=== PATIENT | female | born 1935 | race Caucasian/White ===

== ENCOUNTER 2016-10-15 19:04 | Inpatient (IN) | payer MEDICARE, BC ==
[~2016-10-15] VITALS: Ht 154.9 cm; Wt 82.6 kg
--- NOTE | ~2016-10-15 | ECH ---
Transthoracic Echocardiography Report (TTE) Demographics Patient Name HALEIGH COUCH Date of Study 10/16/2016 Patient Number [id number] Visit Number [id number] Date of 1935 Room Number 309 Accession Number [id number] Gender Female Age 81 year(s) Referring Alberto Men[address] Oiler Ginny Johnson [facility] Physician MD Dominick Nguyen MD Physician Interpreting Dominick Nguyen [employer] Team Member Physician Supervising Ordering Physician Dominick Nguyen MD/MLP Nurse Stress Chronic Specialist Conclusions Contractility Score Summary Normal Left Ventricular contractility was noted. Summary Technically adequate exam. The estimated left ventricular ejection fraction is 60-65%. There is mild to moderate aortic regurgitation by color Doppler. Trivial tricuspid regurgitation by color Doppler. Normal pulmonary pressures. Mild-moderate pulmonic valve regurgitation by color Doppler. Moderate circumferential pericardial effusion, posterior greater than anterior. Unchanged from study of 05/05/2016. There is no echocardiographic evidence of cardiac tamponade. Procedure Type of Study TTE procedure:Echo Complete SF. Procedure Date Date: 10/16/2016 Start: 10:23 AM Technical Quality: Adequate visualization Indications:Pericardial effusion. Appropriate Use Criteria: 9 Height: 61 inches Weight: 181 pounds BSA: 1.81 m Rhythm: Within normal limits HR: 78 bpm BP: 124/58 mmHg M-Mode/2D Measurements LV Diastolic Dimension: 4.3 cm LV Systolic Dimension: 2.71 cm LV Septum Diastolic: 0.87 cm LV PW Diastolic: 0.87 cm AO Root Dimension: 2.45 cm Cardiac Output: 6.77 l/min LA Dimension: 3.35 cm Cardiac Index: 3.74 l/min*m RV Diastolic Dimension: 3.35 cm LA volume index: 25 ml/m Post Pericard Effusion: 1.7 cm LVOT: 1.91 cm LVOT VTI: 30.32 cm RV Base: 2.8 cm LV Stroke volume: 86.83 ml RV Mid: 1.9 cm LV Stroke volume index: 47.97 ml/m TAPSE: 2.2 cm TDI-S': 14 cm/s Doppler Measurements AV Peak Velocity: 2.1 m/s MV Peak E-Wave: 1.06 m/s AV Peak Gradient: 17.64 mmHg MV Peak A-Wave: 1.68 m/s AV Mean Gradient: 10.7 mmHg MV E/A Ratio: 0.63 LVOT Peak Velocity: 1.57 m/s MV P1/2t: 96.1 msec AV Area (Continuity):2.04 cm AV P1/2t: 295 msec TR Velocity:2.32 m/s MV Deceleration Time: 339.8 msec TR Gradient:21.53 mmHg MV Area (PHT): 2.29 cm Estimated RAP:5 mmHg PV Peak Velocity: 1.32 m/s Estimated RVSP: 27 mmHg PV Peak Gradient: 6.97 mmHg E' Septal Velocity: 0.06 m/s Estimated PASP: 26.53 mmHg E' Lateral Velocity: 0.07 m/s A' Septal Velocity: 0.1 m/s A' Lateral Velocity: 0.13 m/s RA Area: 11.41 cm Findings Left Ventricle Normal left ventricle size and function. Diastolic assessment reveals Grade I diastolic dysfunction. Right Ventricle Normal right ventricle structure and function. Left Atrium Normal left atrial size. Right Atrium Normal right atrial size. Mitral Valve Mild mitral annular calcification. Trivial mitral regurgitation by color Doppler. Aortic Valve The aortic valve is moderately sclerotic. There is mild aortic regurgitation by color Doppler. Tricuspid Valve Normal tricuspid valve structure and function. Trivial tricuspid regurgitation by color Doppler. Normal pulmonary pressures. Pulmonic Valve Normal pulmonic valve structure and function. Mild-moderate pulmonic valve regurgitation by color Doppler. Pericardial Effusion Moderate circumferential pericardial effusion, posterior greater than anterior. Unchanged from study of 05/05/2016. There is no echocardiographic evidence of cardiac tamponade. Miscellaneous Visualized portions of the aortic root and ascending aorta appear normal in size. Pleural Effusion No evidence of pleural effusion. Contractility Score LV regional wall motion:(0-Non visualized 1-Normal 2-Hypokinesis 3-Akinesis 4-Dyskinesis 5-Aneurysm) Signature
[~2016-10-15 19:04] MED LIST: ASCORBIC ACID500 MG PO; BROVANA15 MCG/2 M IH; CALCIUM PO; CALCIUM500 MG PO; CALTRATE-600 W600 MG PO; DAILY MULTIPLE1 EAC1 PO; DALIRESP500 MCG PO; DELTASONE DPS10 MG PO; DELTASONE DPS5 MG PO; DESYREL-DPS50 MG PO; DUONEB DPS3 ML IH; LASIX DPS40 MG PO; LASIX40 MG PO; MICRO-K DPS10 MEQ PO; MIRALAX PACKET17 GM PO; MIRALAX17 GM PO; MONTELUKAST SOD10 MG PO; MUCINEX1200 MG PO; MUCINEX600 MG PO; MUCOMYST 10% DPS4 ML IH; NORVASC5 MG PO; PAXIL DPS20 MG PO; POTASSIUM PO; PREDNISONE; PRESERVISION A1 EAC1 PO; PRILOSEC DPS20 MG PO; PROVENTIL HFA6.7 GM IH; PULMICORT0.5 MG/2 M IH; REGLAN DPS5 MG PO; REGLAN5 MG PO; SENOKOT DPS8.6 MG PO; SINGULAIR10 MG PO; STIOLTO RESPIMAT4 GM IH; STOOL SOFTENER1 EACH PO; STOOL SOFTENER100 M1 PO; SYMBICORT160 MCG/6 IH; SYSTANE BALANCE10 ML OU; VANTIN DPS200 MG PO; VEGETABLE LAXA8.6 MG PO; VENTOLIN HFA8 GM IH; VIBRAMYCIN-DPS100 M2 PO; VITAMIN C500 M1 PO; VITAMIN D PO; VITAMIN D2000 UNI1 PO; VITAMIN D2000 UNIT PO; XANAX0.25 MG PO; ZANTAC DPS150 MG PO; ZITHROMAX250 MG PO; [UNRECOGNIZED DRUG - OTHER] PO
--- NOTE | 2016-10-20 11:06 | HP ---
ADMIT: 10/15/2016 RM/LOC: 309 [facility] MR#: [id number] [address] [address] HALEIGH COUCH [address] [place] [address] History and Physical SEX: F AGE: 81 : 1935 DATE OF SERVICE: CHIEF COMPLAINT AND HISTORY OF PRESENT ILLNESS: This 81-year-old female who was admitted with increasing dyspnea, wheezing, and cough. The patient has a long standing history of severe asthma with occasional exacerbations. She also has a history of carcinoma of the lung. She was seen in the office 2 days ago, was given a shot of cortisone, started on azithromycin. The patient has gotten worse. Since then, her sats have gotten worse. She does have a pericardial effusion, was seen by Dr. Tan and because of her severe hypoxemia, was placed in the Intensive Care Unit. The patient has long-standing COPD. She has had no hemoptysis. She really has not had a fever with this, but has had a productive cough. Again, there is no hemoptysis or chest pain, but considerable dyspnea and wheezing. PREVIOUS MEDICAL HISTORY: Generally, her health has been poor. She has had carcinoma of the lung, polymyalgia rheumatica, asthma, chronic constipation, depression, severe COPD. PAST SURGICAL HISTORY: Include an appendectomy, cholecystectomy, hysterectomy, left upper lobectomy, hemorrhoidectomy, breast biopsies, and a sinus surgery. ALLERGIES: THE PATIENT STATES SHE IS ALLERGIC TO PENICILLIN WHICH CAUSES ITCHING. SHE ALSO CANNOT TAKE BIAXIN WHICH CAUSES MORE SEVERE REACTIONS INCLUDING NAUSEA, VOMITING, ITCHING AND SHE HAS NOT TOLERATED. HOWEVER, SHE HAS TOLERATED Z-MAXX IN THE PAST. SHE IS NOT SURE IF SHE HAS TAKEN ROCEPHIN. SHE ALSO DOES NOT TOLERATE HYDROCODONE, NSAIDS, AND SALICYLATES. MEDICATIONS INCLUDE: 1. Lasix 40 mg daily. 2. Reglan 5 mg b.i.d. 3. MiraLax 17 g daily. 4. Singulair. 5. Vitamin D3 daily. 6. Calcium 400 mg daily. 7. Docusate daily. 8. Vitamin C daily. 9. Potassium chloride 10 mEq daily. 10.Omeprazole 40 mg daily. 11.Multivitamins. 12.Paxil 20 mg daily. 13.PreserVision b.i.d. 14.DuoNeb inhaler. 15.Ventolin inhaler. 16.Stiolto inhaler. She recently was placed on Zithromax and prednisone. FAMILY HISTORYHer brother had a myocardial infarction in his 50s, but he is ADMIT: 10/15/2016 RM/LOC: 309 [facility] MR#: [id number] [id number] [address] [place] [address] History and Physical SEX: F AGE: 81 : 1935 living and well now. Her mother of CVA, and her father had leukemia. SOCIAL HISTORYThe patient has remote history of smoking. She lives with her . She is retired. She does not drink alcohol. REVIEW OF SYSTEMSHEENT: The patient wears glasses. No hearing loss. She has had some sinus problems. CARDIORESPIRATORY: The patient has asthma. No myocardial infarctions. There was no chest pain. GI: The patient has a history of GERD. She has had a cholecystectomy. : No hematuria, dysuria. METABOLIC/ENDOCRINE: No history of diabetes or thyroid disorders. MUSCULOSKELETAL: The patient has kyphosis. She has osteoarthritis. PHYSICAL EXAMINATIONVITAL SIGNS: Blood pressure is 127/66, pulse 86 and regular, respirations 22. GENERAL: The patient is a well-nourished, well-developed female, who is wheezing, but she states her breathing has got better. HEENT: Head - normocephalic without exostoses. WIN. Throat within normal limits. NECK: Neck veins not distended. Thyroid not enlarged. CHEST: Diminished breath sounds bilaterally with wheezing and rales bilaterally. HEART: Regular rhythm with no murmur heard. No clinical evidence of cardiomegaly. ADMIT: 10/15/2016 RM/LOC: 309 [facility] MR#: [id number] [id number] [address] [facility] [address] [place] [address] History and Physical SEX: F AGE: 81 : 1935 ABDOMEN: Soft, nontender. Liver is not enlarged. Spleen is not palpable. No abnormal masses are palpated. Femoral pulses are strong and equal bilaterally. GENITALIA: Deferred. EXTREMITIES: No cyanosis, clubbing or edema. ASSESSMENT#. Acute exacerbation of chronic obstructive pulmonary disease. 1. History of carcinoma lung. 2. Gastroesophageal reflux disease. 3. Hypoxia. 4. Chronic steroid therapy. 5. Polymyalgia rheumatica. Donavan Dominguez MD/ compa JOB #: [id number] CC: Donavan Dominguez, Attending Physician Donavan Dominguez, Family Physician
--- NOTE | 2016-10-20 15:02 | CO ---
ADMIT: 10/15/2016 RM/LOC: 309 [facility] MR#: [id number] [address] [address] MARYJANE COUCH [address] [place] [address] Consultation SEX: F AGE: 81 : 1935 DATE OF CONSULTATION: 10/16/2016 ATTENDING PHYSICIAN: Donavan Dominguez CONSULTING PHYSICIAN: Memo Tan MD REASON FOR CONSULT: Pericardial effusion on CAT scan. HISTORY OF PRESENT ILLNESS: Maryjane is an 81-year-old lady with chronic lung disease and history of lung cancer, status post left upper lobectomy, three years ago in 2013. She says she did not require radiation or chemotherapy. She quit smoking about 20 years ago. She has been struggling with an ongoing COPD exacerbation and chronic cough since this past fall when she was hospitalized. She also says she has asthma. Over the past 7 to 10 days, she said this cough has worsened to the point where it is very coarse. She coughs to the point where she passes out on several occasions. She went to see Dr. Dominguez on Monday. She was given steroids and started on some antibiotics. Despite that, she continued to have this terrible cough and had three episodes yesterday which prompted her to come to the emergency room. Through all of this, she says she has not had any chest pain. She does not have any other prior cardiac history. No heart failure and denies any new lower extremity edema. She was admitted with a COPD exacerbation. Last night in the hospital, she became acutely short of breath and hypoxic. She was transferred to the ICU. By the time she got down to the ICU, her sats were backup in the 90s. She is still on 2 to 3 L of oxygen, but feels much better. She did not have quite as much cough last night. As part of that evaluation and CAT scan was done. I do not have the full report, but apparently, they said there was a moderate pericardial effusion. She is not hypotensive. Her EKG is slightly low voltage, but otherwise, she does not have significant JVD and she has not had any syncope without coughing. PAST MEDICAL HISTORY: ALLERGIES: SHE IS ALLERGIC TO SALICYLATES, NSAIDS, PENICILLIN, QUINOLONES, STATINS, DIGOXIN, HYDROCODONE, ASPIRIN, CLARITHROMYCIN, ZOFRAN, AND BROVANA. MEDICATIONS: Her home medications include: 1. Furosemide 40 daily. 2. Reglan 5 b.i.d. 3. MiraLax 17 g daily. 4. Singulair 10 at bedtime. 5. Vitamin D3 daily. 6. Calcium 400 daily. 7. Docusate daily. 8. Vitamin C. 9. Potassium chloride 10 mEq daily. ADMIT: 10/15/2016 RM/LOC: 309 [facility] MR#: [id number] [id number] [place] [address] [place] [address] Consultation SEX: F AGE: 81 : 1935 10.Omeprazole 40 daily. 11.Multivitamin daily. 12.Paxil 20 daily. 13.PreserVision b.i.d. 14.DuoNeb inhaler. 15.Budesonide inhaler. 16.Ventolin inhaler. 17.Stiolto inhaler. 18.Zithromax 250 q.i.d. 19.Prednisone 5 daily. ILLNESSES: Include her COPD and a history of asthma, polymyalgia rheumatic, chronic constipation, and depression. SURGERIES: Include appendectomy, cholecystectomy, hysterectomy, left upper lobectomy, hemorrhoid surgeries, several sinus surgeries, and breast biopsies which have been benign. FAMILY HISTORY: Her brother had a myocardial infarction in his 50s, but he lived into his 90s. Her mother of a cerebrovascular accident. Her father had leukemia. SOCIAL HISTORY: She lives here in [place] with her of 61 years. They have 2 children. 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 Her worked for the [employer] for almost 50 years. She quit smoking 20 years ago. She does not drink alcohol. REVIEW OF SYSTEMS: A full 12-point review of systems was reviewed and noncontributory other than that mentioned above. PHYSICAL EXAMINATION: VITAL SIGNS: Her blood pressure is 127/66, her pulse is 86, respirations 22. She is currently afebrile. O2 sats are 95% on 2 L. GENERAL: She is alert and oriented. She has good humor. She does not appear in any acute distress. She does have mild pursed lipped breathing. SKIN: Mildly pale. Warm, dry, well perfused. Good capillary refill. EYES: Sclerae clear. No xanthelasmas. ENT: No significant JVD and I cannot hear any carotid bruits over her transmitted upper airway sounds. No significant thyromegaly. CHEST: There is moderate kyphosis with diffuse end expiratory wheezes throughout and poor air movement throughout, but no specific areas of crackles. HEART: The heart is not overly distant. There is a soft systolic murmur heard in the mid precordium, but mostly at the base, but I do not think it radiates to the carotids. I do not hear an apical murmur and there are no lifts. ABDOMEN: Obese with a small ventral deformity. Otherwise, no organomegaly or hepatomegaly. Soft and nontender. MUSCULOSKELETAL: Gait is normal. EXTREMITIES: Peripheral pulses palpable. No clubbing, cyanosis or edema. ADMIT: 10/15/2016 RM/LOC: 309 [facility] MR#: [id number] [address] [address] MARYJANE COUCH [address] [place] [address] Consultation SEX: F AGE: 81 : 1935 PSYCHIATRIC: Alert and oriented. Mood and affect are appropriate. LABORATORY DATA: Sodium was 141, potassium is 3.5, creatinine is 0.9, glucose is 141. Total bilirubin and protein were normal. CK was 98. Her troponin was 0.148. White count 9.5, hemoglobin 10.9, and platelet count 212,000. Her chest x-ray does not show marked cardiomegaly. Apparently, a CAT scan suggested a moderate pericardial effusion. IMPRESSION: 1. Possible moderate pericardial effusion. 2. Chronic obstructive pulmonary disease exacerbation. 3. History of asthma. 4. Hypoxia. 5. History of lung cancer, status post left upper lobectomy. 6. Probable cough syncope. 7. Chronic steroid therapy for polymyalgia rheumatic. RECOMMENDATIONS: She is not hypotensive nor tachycardic. I do not think there is any tamponade physiology. She does have low voltage on her EKG, but I am not sure if this is new. I do not see any other clinical manifestations of a large pericardial effusion or tamponade physiology. We will do an echo today for further evaluation. I did look back, and in 2011, she had trivial amount of pericardial fluid, so we will compare it today. My feeling is that her of pericardial effusion is probably incidental and not contributing to her cough and her current COPD exacerbation which she has been really struggling with since this past fall. Further evaluation of her pericardial effusion will be based on the echo findings and the amount of fluid. Memo Tan MD/ compa JOB #: [id number] CC: Donavan Dominguez, Attending Physician Donavan Dominguez, Family Physician
--- NOTE | 2016-10-24 10:51 | DS ---
ADMIT: 10/16/2016 RM/LOC: 510 [facility] MR#: [id number] [id number] [facility] [address] [place], [place] [address] HALEIGH COUCH [address] [place] [address] Discharge Summary SEX: F AGE: 81 : 1935 ADMISSION DATE: 10/16/2016 DISCHARGE DATE: 10/23/2016 HISTORY AND PHYSICAL: Please see the chart. LABORATORY AND X-RAY DATA: Please see the chart. CLINICAL COURSE: This 81-year-old female was admitted with increasing weakness, cough, wheezing and borderline respiratory failure. Initially, she was seen in the emergency room. She was given intravenous Solu-Medrol 125 mg initially daily and was increased to 125 mg t.i.d. Pulmonary was consulted as was the economics department chair. The patient was felt to have a possible pericardial effusion and primarily problem was exacerbation of her COPD with hypoxia and also status post carcinoma of the lung with lobectomy. Over the next few days, the patient slowly improved. She was given intravenous Zithromax which she has tolerated in the past and then was later given Rocephin. She was given Lovenox for DVT prevention. The patient again slowly improved. At the time of discharge, her oxygen levels were better. She still required 1 L of oxygen during the day and her evening home oxygen. He was placed out of the intensive care unit and on to telemetry on 10/17. No significant dysrhythmias were noted. Pulmonary function again showed severe obstruction. Her Solu- Medrol was tapered and switched to prednisone. She was quite weak but was getting stronger at the time of discharge. She also is hypertensive and was started on Norvasc 10 mg once a day. The patient was given oral Mucomyst. The patient is discharged on prednisone 20 mg b.i.d. orally, Ceftin 250 mg b.i.d. for two more days. She will continue her Caltrate, Colace, Deltasone, Lasix, Micro-K, MiraLax, Mucomyst, Norvasc, Paxil, Protonix, Reglan, Senokot, Singulair, therapeutic vitamins, vitamin C, vitamin D, DuoNeb b.i.d., Proventil HFA one puff daily and Pulmicort 0.5 b.i.d. She will be seen in the office in one week. FINAL DIAGNOSES: ADMIT: 10/16/2016 RM/LOC: 510 [facility] MR#: [id number] [id number] [address] [place] [address] Discharge Summary SEX: F AGE: 81 : 1935 1. Acute exacerbation of COPD (chronic obstructive pulmonary disease) with hypoxemia. 2. Pericardial effusion. 3. Pulmonary nodule. 4. History of asthma and COPD (chronic obstructive pulmonary disease). 5. History of carcinoma of the lung. 6. Polymyalgia rheumatica. 7. Hypertension. 8. Hypokalemia. 9. Macular degeneration. 10.History of depression. 11.Gastroesophageal reflux disease. Donavan Dominguez MD/ vdg JOB #: [id number] CC: Donavan Dominguez MD, Attending Physician Donavan Dominguez MD, Family Physician
[2016-10-24] MEDS ORDERED: MIRALAX PACKET17 GM PO (17:22)
[2016-10-24] MEDS ORDERED: LASIX DPS40 MG PO (17:22)
[2016-10-24] MEDS ORDERED: MONTELUKAST SOD10 MG PO (17:23)
[2016-10-24] MEDS ORDERED: REGLAN DPS5 MG PO (17:23)
[2016-10-24] MEDS ORDERED: CALCIUM500 MG PO (17:23)
[2016-10-24] MEDS ORDERED: VITAMIN D-32000 UNI1 PO (17:23)
[2016-10-24] MEDS ORDERED: COLACE-DPS100 MG PO (17:24)
[2016-10-24] MEDS ORDERED: MICRO-K DPS10 MEQ PO (17:24)
[2016-10-24] MEDS ORDERED: ASCORBIC ACID500 MG PO (17:24)
[2016-10-24] MEDS ORDERED: VEGETABLE LAXA8.6 MG PO (17:24)
[2016-10-24] MEDS ORDERED: PRILOSEC DPS20 MG PO (17:25)
[2016-10-24] MEDS ORDERED: PRESERVISION A1 EACH PO (17:25)
[2016-10-24] MEDS ORDERED: THERA1 EACH PO (17:25)
[2016-10-24] MEDS ORDERED: PAXIL DPS20 MG PO (17:25)
[2016-10-24] MEDS ORDERED: DUONEB DPS3 ML IH (17:25)
[2016-10-24] MEDS ORDERED: NORVASC DPS10 MG PO (17:26)
[2016-10-24] MEDS ORDERED: PROVENTIL HFA6.7 GM IH (17:26)
[2016-10-24] MEDS ORDERED: STIOLTO RESPIMAT4 GM IH (17:26)
[2016-10-24] MEDS ORDERED: N-ACETYL-L-CYS600 MG PO (17:26)
[2016-10-24] MEDS ORDERED: BUDESONIDE0.5 MG/2 M IH (17:26)
[2016-10-24] MEDS ORDERED: CEFTIN DPS500 MG PO (17:27)
[2016-10-24] MEDS ORDERED: DELTASONE DPS10 MG PO (17:28)
--- NOTE | 2016-10-25 09:28 | ER ---
ADMIT: 10/15/2016 RM/LOC: 524 [facility] MR#: [id number] [address] [facility] [address] [place] [address] HALEIGH COUCH [address] [place] [address] Emergency Room Report SEX: F AGE: 81 : 1935 DATE: 10/15/2016 ADDENDUM: CHIEF COMPLAINT: Cough and shortness of breath. HISTORY OF PRESENT ILLNESS: This is an 81-year-old female who has a history of COPD, asthma, and a partial lobectomy of her left lung. She comes in complaining that she has had a cough for 2 weeks. She did see Dr. Dominguez in the office yesterday. He started her on steroids and Zithromax. She does use oxygen at night time, but she has been having to use it in the day because she is so short of breath. Today, she was very weak. It is hard for her to even walk, so she came into the ER. PAST MEDICAL HISTORY: Hypercholesteremia, COPD, and asthma. PAST SURGICAL HISTORY: Surgeries include cholecystectomy, hysterectomy, removal of upper lung of the left lobe status post lung cancer 3 years ago. MEDICATIONS: Please see nurse's note. ALLERGIES: STATINS, LEVAQUIN, TRAMADOL, PENICILLIN, ASPIRIN, ZOFRAN, LORTAB, AND LIPITOR. SOCIAL HISTORY: Denies any tobacco, drug, or alcohol use. FAMILY HISTORY: Noncontributory. REVIEW OF SYSTEMS: CONSTITUTIONAL: He does have some generalized weakness, has had some chills and sweats. CARDIOVASCULAR/RESPIRATORY: Denies any chest pain, but has had extreme shortness of breath. Says she coughs so hard that she feels like she is going to pass out. GASTROINTESTINAL/GENITOURINARY: Denies any nausea, vomiting, or diarrhea. All systems otherwise negative. PHYSICAL EXAMINATION: VITAL SIGNS: Blood pressure is 152/70, pulse is 89, respirations 24, temperature is 100.1 tympanic, and saturation of oxygen is 99% on room air; when placed on 1 L, she is 95%. GENERAL APPEARANCE: She is in mild distress, but alert. HEENT: Pharynx is moist. No tonsillar swelling or exudate. HEART: Regular rate and rhythm. LUNGS: Wheezy bilateral and decreased. Her sats again were 89% on room air. ABDOMEN: Soft, nontender. No distention. SKIN: Normal color, warm, and dry. No rashes noted. NEURO AND PSYCH: She is alert and oriented x3. Mood and affect normal. EXTREMITIES: No pedal edema. COURSE IN THE EMERGENCY ROOM: Sepsis protocol was ordered, and she was given ADMIT: 10/15/2016 RM/LOC: 524 [facility] MR#: [id number] [address] [address] [place] [address] Emergency Room Report SEX: F AGE: 81 : 1935 DuoNeb here in the emergency room. Normal saline has been at [facility]. Before she goes up to the floor, she will receive Rocephin 2 g IV. I did speak with Dr. Senior regarding this patient for Dr. Dominguez. He is willing to admit. Overall findings in ER, chest x-ray, no obvious pneumonia. PT/INR is negative. CBC is normal except for hemoglobin of 10.8. Lactic acid is 1.7. UA is normal except for 2 red blood cells. Procalcitonin was normal. CMP is normal except for potassium 3.5 and albumin 3.1. GFR low at 48. Cardiac enzymes are normal. CLINICAL IMPRESSION: Chronic obstructive pulmonary disease exacerbation. DISPOSITION: She is stable at admit. DANNY Baker / Billy Manrique MD / modl JOB #: [id number] CC: Donavan Dominguez MD, Attending Physician Donavan Dominguez MD, Family Physician
--- NOTE | 2016-11-21 09:06 | CO ---
ADMIT: 10/15/2016 RM/LOC: 309 [facility] MR#: [id number] [facility] [address] [place], [place] [address] HALEIGH DOSS [address] [place] [address] Consultation SEX: F AGE: 81 : 1935 DATE OF CONSULTATION: 10/16/2016 ATTENDING PHYSICIAN: Donavan Dominguez CONSULTING PHYSICIAN: Darci Rodriguez MD, [facility] REASON FOR REFERRAL: Shortness of breath. HISTORY OF PRESENT ILLNESS: Ms. Doss is an 81-year-old female, who was admitted greater than 24 hours ago to the ICU for shortness of breath. The patient had 1 episode apparently last night of decreased oxygen saturations, was transferred to the ICU. She had a CT scan without contrast last night for shortness of breath, which was unyielding. She has been in the ICU during the day with cough and shortness of breath, but she had a severe episode of desaturations this night with sats into the 60s. Discussing with the nurse the patient's O2, the pulse oximeter was picking up corresponding to her actual pulse rate with her pulse oximeter and seemed to be good waveforms. Last night's episode was associated with a severe coughing episode according to the patient and the nurse, tonight was not. The patient has no chest pain. She has noted to have low voltage on her EKG, and she had an echocardiogram today, which showed a moderate pericardial effusion with no signs of tamponade. She has been having cough and shortness of breath for the past 10 days. She has had no fevers, chills. Her cough is mostly nonproductive. She has a history of lung cancer operated on 5 years ago at the [facility] by Dr. Mas. She does not know the stage, but states it was an early stage and required no chemo or radiation. She is followed by him and recently had an evaluation there that showed no evidence of recurrence. Her CAT scan last night showed pericardial effusion. She had 13 mm right middle lobe nodule unchanged from previous CAT scans. Another nodule, which is unchanged from June 25 and this was unchanged from November of 2015. A CAT scan on 04/26/2015, showed a 12 x 8 mm non-calcified nodule in right upper lobe very similar to that as far back as 2013. The measurement of the nodule from a year ago was 12 mm, today's was 13 mm as unchanged from the previous and that was only compared to the 06/25/2016, and the November 2015. It was not compared to the ones from earlier according to the Radiology notes. The patient carries a diagnosis of asthma on her history and physical, but another showed has a history of COPD. She states that she only started having symptoms 15 years ago and she is a previous smoker. She is on chronic prednisone at low dose for polymyalgia rheumatica. She has no chest pain, no orthopnea, no PND, no pedal edema. She quit smoking several years ago. She is on oxygen only at night at home. MEDICATIONS: Her home medications are: 1. Lasix. 2. Reglan. 3. MiraLax. 4. Singulair. 5. Vitamin D3. 6. Calcium 400. ADMIT: 10/15/2016 RM/LOC: 309 [facility] MR#: [id number] [address] [place] [id number] HALEIGH DOSS [address] [place] [address] Consultation SEX: F AGE: 81 : 1935 7. Colace. 8. Vitamin C. 9. Potassium chloride. 10.Omeprazole. 11.Multivitamins. 12.Paxil. 13.PreserVision. 14.DuoNebs. 15.Budesonide. 16.Ventolin. 17.Stiolto. 18.Zithromax. 19.Prednisone 5 mg q.i.d. that is for her polymyalgia rheumatica. PAST MEDICAL HISTORY: COPD, polymyalgia rheumatica, history of asthma, chronic constipation, depression. History of lung cancer with a left upper lobectomy 5 years ago. PAST SURGICAL HISTORY: Appendectomy, cholecystectomy, hysterectomy, hemorrhoidectomy surgery, sinus surgery, breast biopsies. FAMILY AND SOCIAL HISTORY: Brother with myocardial infarction in his 50s. Mother of cerebrovascular accident. Father with leukemia. She quit smoking 20 years ago. Does not drink alcohol. REVIEW OF SYSTEMS: Other than mentioned above; GENERAL: She has had no fevers, chills, night sweats. EYES: No blurred vision, double vision. ENT: No epistaxis. No tinnitus. CARDIAC and PULMONARY: Other than mentioned above, it is negative. GI: She does have some chronic constipation. No nausea, vomiting, melena, hematochezia, or hematemesis. : No dysuria or pyuria. MUSCULOSKELETAL: No arthralgias or arthritis except for her polymyalgia rheumatica, which is stable. SKIN: No lesions. HEMATOPOIETIC: No easy bruising. NEURO: No weakness. No numbness. PHYSICAL EXAMINATION: VITAL SIGNS: Temperature 97.4, pulse 95, respirations 24, blood pressure 158/77. HEENT: Sclerae nonicteric. Pupils equal, reactive. NECK: Supple. Trachea is midline. No bruits. LUNGS: Expiratory wheezing throughout. CV: Regular rate without murmurs, rubs, or gallops. ABDOMEN: Active bowel sounds. Soft, nontender. EXTREMITIES: No cyanosis, clubbing, or edema. SKIN: Without acute lesions. ADMIT: 10/15/2016 RM/LOC: 309 [facility] MR#: [id number] [address] HALEIGH DOSS [facility] [place] [address] Consultation SEX: F AGE: 81 : 1935 NEURO: Her speech is normal. She is moving all extremities. LABORATORY AND X-RAY DATA: Her ABGs; pH 7.40, pCO2 of 49, PO2 of 72 on the simple mask. Her sodium is 141, potassium is 3.5, chloride is 103, CO2 is 30, her creatinine is 0.9 with calculated GFR of 61. Hemoglobin 10.9, platelets are 212, white count is 9.[address] scan of the chest as mentioned above. IMPRESSION: 1. Hypoxia. 2. Bronchospasm. 3. History of lung cancer. 4. Solitary pulmonary nodule. 5. Anemia. 6. Polymyalgia rheumatica. 7. Pericardial effusion. RECOMMENDATIONS AND DISCUSSION: Unfortunately, the CT scan last night was performed without contrast which limits its diagnostic accuracy for acute shortness of breath. I feel that we should repeat this for spiral CT for PE protocol. Fortunately, her creatinine is at an acceptable level. As far as her COPD, this is most likely due to her COPD acute exacerbation. I feel that we need to increase her steroids significantly. I favor a t.i.d. dosing for Solu-Medrol given that it is a q.8 hour drug over a once a day dosing. I will change this. It is noted that the patient is on Singulair. If she is on Singulair for sinus problems, that would be reasonable, but if she is on Singulair for COPD, I would stop this. It has not been shown to be any effect for COPD nor is there any theoretical reason that it would be of any benefit for COPD. As far as asthma goes, it has been shown not had anything to an inhaled corticosteroid, which she is already on except for coughs. Therefore, I would stop this. I feel that this is most likely due to her COPD exacerbation. I am somewhat concerned that there is a slight change in measurements on the pulmonary nodule from 12 mm to 13 mm and that it is generally recommended that these are compared to the most distant films which were in 2014, not the most recent films. I will write an order to ask the radiologist to review the CAT scan of pulmonary nodule from today's CAT scan to that of to make sure that it is not slowly increasing in size. In ADMIT: 10/15/2016 RM/LOC: 309 [facility] MR#: [id number] [address] HALEIGH DOSS [address] [place] [address] Consultation SEX: F AGE: 81 : 1935 summary, I feel that the shortness of breath is most likely due to her COPD acute exacerbation, we would more aggressively treat this with increased steroids, bronchodilators. Cannot completely exclude a pulmonary embolism at this time, we will get a spiral CT as well. The pericardial effusion according to the crm developer is not causing any tamponade physiology. This could certainly cause shortness of breath if there was any tamponade, and I would recommend evaluating this in the future or at least following it. It is noted that she had a previous echocardiogram approximately 1 year ago, which showed a trivial pericardial effusion and this needs to certainly be followed at the minimum. Thank you for the consultation. Darci Rodriguez MD, FCCP/ modl JOB #: [id number] CC: Donavan Dominguez, Attending Physician Donavan Dominguez, Family Physician
== END 2016-10-23 13:33 | disposition home or self-care (01) | DRG 190 ==
LOC: ER 19:04 → 5MS 21:00 → 3ICU 21:00 → 5MS 10-16 11:25 → 3ICU 10-17 19:35 → 5MS 10-18 01:46
DX: J44.1 Chronic obstructive pulmonary disease with (acute) exacerbation (principal); J96.21 Acute and chronic respiratory failure with hypoxia; I31.3 Pericardial effusion (noninflammatory); J45.909 Unspecified asthma, uncomplicated; E78.00 Pure hypercholesterolemia, unspecified; M35.3 Polymyalgia rheumatica; K59.00 Constipation, unspecified; F32.9 Major depressive disorder, single episode, unspecified; I10 Essential (primary) hypertension; H35.30 Unspecified macular degeneration; E87.6 Hypokalemia; K21.9 Gastro-esophageal reflux disease without esophagitis; R91.1 Solitary pulmonary nodule; M40.209 Unspecified kyphosis, site unspecified; D64.9 Anemia, unspecified; M19.90 Unspecified osteoarthritis, unspecified site; Z79.52 Long term (current) use of systemic steroids; Z85.118 Personal history of other malignant neoplasm of bronchus and lung; Z87.891 Personal history of nicotine dependence; Z99.81 Dependence on supplemental oxygen; Z82.49 Family history of ischemic heart disease and other diseases of the circulatory system